=== PATIENT | male | born 1980 | race African-American/Black ===

== ENCOUNTER 2019-12-16 22:01 | Emergency (ER) | payer MEDICAID, OTHER ==
[~2019-12-16] VITALS: Ht 175.3 cm; Wt 81.8 kg
[2019-12-16 22:09] VITALS: BP 121/68
[2019-12-16] MEDS ORDERED: LIDOcaine Viscous 15ml cup MM ONE (22:55)
[2019-12-16] MEDS ORDERED: IBUP-1985 PO (22:59)
[2019-12-16] MEDS ORDERED: PENI500T2 PO (22:59)
[2019-12-16] MEDS ORDERED: LIDO20SO16 PO (22:59)
== END 2019-12-16 23:31 | disposition home or self-care (01) ==
LOC: ER 22:02
DX: K02.9 Dental caries, unspecified (principal); Z79.2 Long term (current) use of antibiotics; Z79.899 Other long term (current) drug therapy
CPT/HCPCS: 99283